=== PATIENT | female | born 1970 | race Caucasian/White ===

== ENCOUNTER 2016-09-25 15:10 | Emergency (ER) | END 2016-09-25 15:54 | disposition left against medical advice (07) | LOC: UCCORT 15:10 | DX: M54.9 Dorsalgia, unspecified (principal); Z53.20 Procedure and treatment not carried out because of patient's decision for unspecified reasons ==

== ENCOUNTER 2016-09-25 15:13 | Emergency (ER) | END 2016-09-25 15:58 | disposition left against medical advice (07) | LOC: UCCORT 15:13 | DX: Z53.20 Procedure and treatment not carried out because of patient's decision for unspecified reasons (principal) ==

== ENCOUNTER 2018-10-24 15:42 | Emergency (ER) | payer OTHER ==
[2018-10-24 16:27] VITALS: BP 125/81
[2018-10-24] MEDS ORDERED: Tetan/Diph/Pertus SYR(Tdap)* 0.5 ML SYR(BOOSTRIX) use SYR IM ONE (16:39)
--- NOTE | 2018-10-24 16:44 | UC ---
Bite Injury/Animal HPI - HPI Summary HPI Summary: 48-year-old woman comes in with a chief complaint of a dog bite to the left thigh. This occurred today at work. The patient reports she entered a patient' s home and that's when she was bit by the dog on her left thigh just above the knee. She had long pants on and the bite was through the pants however there is no hole in the pants. Last tetanus was 2009. She does not know the rabies immunization status of the dog. She cleaned the wound there was no bleeding. - History of Current Complaint Chief Complaint: UCBiteInjury Stated Complaint: DOG BITE - W/C Time Seen by Provider: 10/24/18 16:16 Pain Intensity: 3 - Allergies/Home Medications Allergies/Adverse Reactions: Allergies Allergy/AdvReac Type Severity Reaction Status Date / Time ciprofloxacin Allergy Hives Verified 10/24/18 16:19 Home Medications: Home Medications Albuterol HFA INHALER* [Ventolin HFA Inhaler*] 2 puff INH Q4H PRN 10/24/18 [ History Confirmed 10/24/18] Amphetamine MIXED SALT TAB* [Adderall TAB*] 20 mg PO DAILY 10/24/18 [History Confirmed 10/24/18] Aspirin EC TAB* [Ecotrin EC Low Dose 81 MG*] 2 tab PO DAILY 10/24/18 [History Confirmed 10/24/18] Buprenorp/Nalox 8-2 MG SL TAB [Suboxone 8-2 mg SL TAB*] 8 mg DAILY 10/24/18 [ History Confirmed 10/24/18] Rosuvastatin Calcium [Crestor] 20 mg PO DAILY 10/24/18 [History Confirmed ] PMH/Surg Hx/FS Hx/Imm Hx Previously Healthy: Yes - Surgical History Surgical History: Yes Surgery Procedure, Year, and Place: IVC filter, September 2017. Appendix. Tonsils. Gastric bypass, Apr 2009. Hysterectomy - Family History Known Family History: Positive: Non-Contributory - Social History Alcohol Use: None Substance Use Type: None Smoking Status (MU): Never Smoked Tobacco Type: eCigarettes Review of Systems All Other Systems Reviewed And Are Negative: Yes Constitutional: Positive: Negative Skin: Positive: Other - SEE HPI Eyes: Positive: Negative ENT: Positive: Negative Respiratory: Positive: Negative Cardiovascular: Positive: Negative Gastrointestinal: Positive: Negative Motor: Positive: Negative Neurovascular: Positive: Negative Musculoskeletal: Positive: Negative Neurological: Positive: Negative Psychological: Positive: Negative Is Patient Immunocompromised?: No Physical Exam Triage Information Reviewed: Yes Appearance: Well-Appearing, No Pain Distress, Well-Nourished Vital Signs: Initial Vital Signs Temp 97.7 F 10/24/18 16:21 Pulse 76 10/24/18 16:21 Resp 16 10/24/18 16:21 BP 125/81 10/24/18 16:21 Pulse Ox 98 10/24/18 16:21 Vital Signs Reviewed: Yes Eye Exam: Normal Eyes: Positive: Conjunctiva Clear Neck: Positive: Supple Respiratory: Positive: No respiratory distress Musculoskeletal: Positive: Strength Intact, ROM Intact Neurological: Positive: Alert, Muscle Tone Normal Psychological Exam: Normal Psychological: Positive: Age Appropriate Behavior Skin: Positive: Other - LEFT LOWER ANTERIOR THIGH; 3 CM ECCYMOTIC AREA WITH TWO 3MM SUPERFICIAL PARTIAL THICKNESS SKIN INJURIES WITH SCAB FORMATION. NO STREAKING, NO BLEEDING. Bite Injury Course/Dx - Course Course Of Treatment: BITE FORM COMPLETED. AUGMENTIN PROPHYLAXIS GIVEN. TDAP GIVEN. - Differential Dx/Diagnosis Provider Diagnosis: Dog bite of left thigh Discharge - Sign-Out/Discharge Documenting (check all that apply): Patient Departure All imaging exams completed and their final reports reviewed: No Studies - Discharge Plan Condition: Stable Disposition: HOME Prescriptions: Amoxicillin/Clavulanate TAB* [Augmentin TAB 875*] 875 mg PO BID #10 tab Patient Education Materials: Animal Bite (ED) Referrals: Yisel Lancaster NP [Primary Care Provider] - Additional Instructions: THE [facility] DEPARTMENT WILL CONTACT YOU ABOUT THE BITE AND DETERMINE IF THERE IS NEED FOR RABIES IMMUNIZATION. FOLLOW UP WITH YOUR DOCTOR IF NOT COMPLETELY IMPROVED. GET RECHECKED SOONER IF YOUR CONDITION WORSENS OR ANY QUESTIONS OR CONCERNS. - Billing Disposition and Condition Condition: STABLE Disposition: Home
== END 2018-10-24 16:52 | disposition home or self-care (01) ==
LOC: UCCORT 15:42
DX: S71.152A Open bite, left thigh, initial encounter (principal); W54.0XXA Bitten by dog, initial encounter; Y93.01 Activity, walking, marching and hiking; Y92.099 Unspecified place in other non-institutional residence as the place of occurrence of the external cause; Z88.1 Allergy status to other antibiotic agents; Z79.82 Long term (current) use of aspirin
CPT/HCPCS: 90715; 96372; 99212; G0463